=== PATIENT | male | born 1950 | race African-American/Black ===

== ENCOUNTER 2021-01-02 12:36 | Emergency (ER) | payer MEDICARE, OTHER ==
[~2021-01-02] VITALS: Ht 193 cm; Wt 91.0 kg
[2021-01-02] MEDS ORDERED: ASPI-1497 PO (12:49)
[2021-01-02] MEDS ORDERED: DIGOXIN 500MCG/2ML AMP IV SCH (14:00)
[2021-01-02 14:20] LABS: BASOPHILS % 0.3 % (0.0-2.0); EOSINOPHILS % 0.3 % (0.0-5.0); HEMATOCRIT. 43.3 % (42.0-52.0); HEMOGLOBIN. 14.1 g/dL (14.0-18.0); LYMPHOCYTES % 16.5 % (20.0-50.0); MEAN CORPUSCULAR HEMOGLOBIN 28.1 pg (28.0-32.0); MEAN CORPUSCULAR VOLUME 86.7 fL (80.0-94.0); MONOCYTES % 14.1 % (2.0-8.0); NEUTROPHILS % 68.8 % (40.0-76.0); PLATELET 90 x1000/uL (130-400); RED CELL DISTRIBUTION WIDTH 19.4 % (11.6-14.6)
[2021-01-02 14:29] LABS: CHLORIDE 113 mEq/L (98-107)
[2021-01-02] MEDS ORDERED: METOPROLOL TARTRATE 25MG TABLET PO NR (17:15)
[2021-01-02] MEDS ORDERED: DIGOXIN 500MCG/2ML AMP IV ONE (17:15)
[2021-01-02] MEDS ORDERED: METOPROLOL TARTRATE 5MG/5ML VIAL IV NR (18:09)
[2021-01-02 21:15] VITALS: BP 130/88
== END 2021-01-02 22:05 | disposition home or self-care (01) ==
LOC: ER 12:36 → EDBEDREQTM 20:08 → EDBEDREQ 20:08 → ER 22:05 → CANBEDREQ 22:18
DX: I49.9 Cardiac arrhythmia, unspecified (principal); R77.8 Other specified abnormalities of plasma proteins; I25.2 Old myocardial infarction; I48.91 Unspecified atrial fibrillation; E78.00 Pure hypercholesterolemia, unspecified; Z98.890 Other specified postprocedural states
CPT/HCPCS: 36415; 71045; 80053; 83880; 84484; 85025; 85379; 93005; 96374; 96375; 96376; 99285; J1160; J3490